=== PATIENT | male | born 2005 | race Caucasian/White ===

== ENCOUNTER 2025-02-05 23:41 | Emergency (ER) | payer OTHER, SELFPAY ==
[2025-02-05 23:47] VITALS: BP 134/70
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
[2025-02-06] MEDS: AUGMENTIN 875 MG/125 MG 1 TABLET PO (02:14)
[2025-02-06] MEDS: MOTRIN 600 MG PO (02:23)
[2025-02-06 02:34] VITALS: BP 131/79
== END 2025-02-06 02:50 | disposition home or self-care (01) ==
LOC: EMR 23:41
PROVIDERS: EMERGENCY PHYSICIAN Emergency Medicine; FAMILY PHYSICIAN Pediatrics Adolescent Medicine
DX: S02.40FA Zygomatic fracture, left side, initial encounter for closed fracture (principal); S02.32XA Fracture of orbital floor, left side, initial encounter for closed fracture; W21.220A Struck by ice hockey puck, initial encounter
CPT/HCPCS: 99284; 70450; 70486